=== PATIENT | male | born 1945 | race Caucasian/White ===

== ENCOUNTER 2019-05-15 06:35 | Day surgery (SDC) | payer OTHER ==
[~2019-05-15] VITALS: Ht 180.3 cm; Wt 79.9 kg
[~2019-05-15 06:35] MED LIST: ALEN70; ASCO1ER PO; ASCO500 PO; ASPI81CH PO; CALGLU500 PO; CHOL10002 PO; Calcium + Vita1 EACH PO; Calcium 600 +1 EAC1 PO; Chondroitin Su250 MG PO; FISH1000 PO; FLAX PO; GLUC500; GLUC500 PO; Glucosamine-Ch1 EAC2 PO; LATA.005SO BOTHEYES; Lisinopril2.5 MG PO; MELA3 PO; METF500 PO; METO25 PO; METO50ER PO; MULVITMIND PO; Multiple Vitam1 EAC1 PO; POTASSIUM PO; SELENIUM; VIT D3 PO
== END 2019-05-15 10:20 | disposition home or self-care (01) ==
LOC: ORSCSDS 06:35
PROVIDERS: Internal Medicine Gastroenterology
PROC: 0DBH8ZX Excision of Cecum, Via Natural or Artificial Opening Endoscopic, Diagnostic (ICD-10-PCS; principal; 2019-05-15 09:00)
PROC: 0DBP8ZX Excision of Rectum, Via Natural or Artificial Opening Endoscopic, Diagnostic (ICD-10-PCS; principal; 2019-05-15 09:00)
DX: Z12.11 Encounter for screening for malignant neoplasm of colon (principal); Z86.010 Personal history of colon polyps; D12.0 Benign neoplasm of cecum; K62.1 Rectal polyp; K57.30 Diverticulosis of large intestine without perforation or abscess without bleeding; Z95.0 Presence of cardiac pacemaker; Z79.899 Other long term (current) drug therapy
CPT/HCPCS: 88305; J0330; J0461; J2405; J2704; J7120

== ENCOUNTER 2023-01-11 07:24 | Day surgery (SDC) | payer OTHER ==
[~2023-01-11] VITALS: Ht 180.3 cm; Wt 82.1 kg
[2023-01-11] MEDS ORDERED: OMEP20ER PO (08:27)
[2023-01-11] MEDS ORDERED: SPIR25 PO (08:28)
[2023-01-11] MEDS ORDERED: Lisinopril2.5 MG PO (08:29)
[2023-01-11] MEDS ORDERED: DICLEGIS DR 101 EAC1 PO (08:31)
[2023-01-11] MEDS ORDERED: PSYSENPA PO (08:31)
[2023-01-11] MEDS ORDERED: CELE100 PO (08:32)
[2023-01-11 09:31] VITALS: BP 106/71
== END 2023-01-11 09:35 | disposition home or self-care (01) ==
LOC: ORSCSDS 07:24
PROVIDERS: Internal Medicine Gastroenterology
PROC: 0DB58ZX Excision of Esophagus, Via Natural or Artificial Opening Endoscopic, Diagnostic (ICD-10-PCS; principal; 2023-01-11 09:00)
DX: R12 Heartburn (principal); K20.90 Esophagitis, unspecified without bleeding; K57.30 Diverticulosis of large intestine without perforation or abscess without bleeding; Z86.010 Personal history of colon polyps; K44.9 Diaphragmatic hernia without obstruction or gangrene; I50.9 Heart failure, unspecified; I49.3 Ventricular premature depolarization; Z95.0 Presence of cardiac pacemaker; Z85.46 Personal history of malignant neoplasm of prostate; Z79.899 Other long term (current) drug therapy
CPT/HCPCS: 88305; J2704; J7120

== ENCOUNTER 2024-06-14 06:10 | Day surgery (SDC) | payer OTHER ==
[2024-06-14] VITALS (7 sets, daily range): BP systolic 111–124; BP diastolic 72–84
[~2024-06-14] VITALS: Ht 180.3 cm; Wt 82.0 kg
[~2024-06-14 06:10] MED LIST changes: +CELE100 PO; +DICLEGIS DR 101 EAC1 PO; +FAMO20 PO; +OMEP20ER PO; +PSYSENPA PO; +SPIR25 PO
[2024-06-14] MEDS ORDERED: FentaNYL Citrate 50 MCG/ML 2 ML Injection ONE (06:52)
[2024-06-14] MEDS ORDERED: NS 500 ML IV ONE ×2 (06:52→06:59)
[2024-06-14] MEDS ORDERED: Midazolam HCl 1MG / ML 2ML Vial ONE (06:52)
[2024-06-14] MEDS ORDERED: NS 250 ML IV ONE ×2 (06:52→07:31)
[2024-06-14] MEDS ORDERED: Heparin Sodium 1000 Units/ML 10ML MDV ONE (06:54)
[2024-06-14] MEDS ORDERED: CeFAZolin Sodium 2,000 MG VIAL ONE (06:54)
[2024-06-14] MEDS ORDERED: CeFAZolin Sodium 1000 mg Vial ONE (06:54)
[2024-06-14] MEDS ORDERED: NS 100 ML IV ONE (06:54)
[2024-06-14] MEDS ORDERED: Atropine Sulfate 0.1 MG/ML 10ML SYR ONE (07:37)
--- NOTE | 2024-06-14 09:45 | NUR ---
PT RETURNED TO RECOVERY ROOM IN [facility]. LACW PACER SITE SOFT NON-TENDER WITH NO HEMATOMA,SLIGHT OOZING AND INTACT DRESSING WITH ICE BAG OVER SITE. R IJ VENOUS SITE SOFT NON-TENDER WITH NO HEMATOMA, NO BLEEDING AND INTACT DRESSING. PT DENIES CP. CALL LIGHT IN REACH. PT DRINKING COFFEE.
--- NOTE | 2024-06-14 10:59 | NUR ---
2-V CHEST XRAY COMPLETED. RENZO FROM [employer] IN ROOM TO SET UP PT'S SMART PHONE. PT AMBULATED TO BR TO VOID. CALL LIGHT IN REACH. NO CHANGES TO LACW OR R IJ SITES.
--- NOTE | 2024-06-14 11:17 | NUR ---
DR FUNES WAS IN RECOVERY ROOM TO SEE PT. SEE NEW ORDERS.
--- NOTE | 2024-06-14 11:55 | NUR ---
NO CHANGES TO LACW SITE OR R IJ SITE. DISCHARGE INSTRUCTIONS REVIEWED AND ALL QUESTIONS ANSWERED. 20 G IV DISCONTINUED FROM LEFT AC WITH INTACT CANNULA. PT ESCORTED OUT VIA WHEELCHAIR ESCORT.
== END 2024-06-14 11:55 | disposition home or self-care (01) ==
LOC: MHTC 06:10
DX: Z45.018 Encounter for adjustment and management of other part of cardiac pacemaker (principal); I42.8 Other cardiomyopathies; I49.5 Sick sinus syndrome; I11.0 Hypertensive heart disease with heart failure; I50.32 Chronic diastolic (congestive) heart failure; I49.3 Ventricular premature depolarization; Z95.0 Presence of cardiac pacemaker; Z79.899 Other long term (current) drug therapy; Z88.8 Allergy status to other drugs, medicaments and biological substances
CPT/HCPCS: 33210; 33228; 71046; 76937; 99152; 99153; C1785; C1894; J0461; J0690; J1644; J2250; J3010; J7040; J7050